=== PATIENT | male | born 1990 | race Caucasian/White ===

== ENCOUNTER 2021-01-01 11:43 | Emergency (ER) | payer BC, OTHER ==
[2021-01-01 11:46] VITALS: BP 146/98; PULSE 98; TEMP 98.1; BMI 27.1
[2021-01-01] MEDS ORDERED: KETOROLAC TROMETHAMINE 30 MG/1 ML VIAL IM ONE (12:06)
[2021-01-01] MEDS ORDERED: METHOCARBAMOL 500 MG TABLET PO ONE (12:06)
[2021-01-01] MEDS ORDERED: METHOCARBAMOL 500 MG TABLET ONE (12:10)
[2021-01-01] MEDS ORDERED: KETOROLAC TROMETHAMINE 30 MG/1 ML VIAL ONE (12:10)
== END 2021-01-01 12:43 | disposition home or self-care (01) ==
LOC: JERFT 11:43
PROC: 3E0233Z Introduction of Anti-inflammatory into Muscle, Percutaneous Approach (ICD-10-PCS; principal; 2021-01-01)
DX: M62.830 Muscle spasm of back (principal); S39.012A Strain of muscle, fascia and tendon of lower back, initial encounter
CPT/HCPCS: 72100-TC-FY; 99284-25